=== PATIENT | female | born 1990 | race Caucasian/White ===

== ENCOUNTER 2016-11-25 02:46 | Emergency (ER) | payer OTHER ==
--- NOTE | 2016-11-25 03:10 | PDOC ---
History of Present Illness - General History Source: Patient Exam Limitations: No Limitations - History of Present Illness Initial Comments: 11/25/16 03:17 The patient is a 22-year-old female, with no signifiant past medical history, who presents to the ED with 2 weeks of left-sided facial pain, neck pain, and throat pain. Patient denies any recent trauma or teeth pain. She states the pain is throbbing in nature. The patient denies having any other symptoms. <Celina Morton - Last Filed: 11/25/16 03:16> - General History Source: Patient <Taye Mckoy - Last Filed: 11/25/16 19:28> - General Chief Complaint: Pain Stated Complaint: PAIN Time Seen by Provider: 11/25/16 03:02 Past History <Celina Morton - Last Filed: 11/25/16 03:16> - Past Medical History Asthma: Yes (childhood) Cancer: No Cardiac Disorders: No Diabetes: No HTN: No Seizures: No Thyroid Disease: No - Reproductive History (#): 2 Para: 1 Cervical CA: No Dysfunctional Uterine Bleeding: No Ectopic : No Endometrial CA: No Polycystic Ovaries: No Tubal Ligation: No Spontaneous : 0 - Immunization History Immunization Up to Date: Yes - Psycho/Social/Smoking Cessation Hx Suicidal Ideation: No Smoking History: Never smoked Have you smoked in the past 12 months: No Information on smoking cessation initiated: No Hx Alcohol Use: No Drug/Substance Use Hx: No Hx Substance Use Treatment: No <SungsaumyaTaye - Last Filed: 11/25/16 19:28> - Past Medical History Allergies/Adverse Reactions: Allergies Allergy/AdvReac Type Severity Reaction Status Date / Time No Known Allergies Allergy Verified 11/25/16 02:57 Home Medications: Ambulatory Orders Ibuprofen 800 mg PO TID #30 tablet 11/25/16 Ibuprofen [Motrin -] 600 mg PO TID PRN 11/25/16 Review of Systems - Review of Systems Able to Perform ROS?: Yes Comments:: 11/25/16 03:20 CONSTITUTIONAL: Absent: fever, no chills, no fatigue EYES: Absent: visual changes ENT: Present: throat pain Absent: ear pain CARDIOVASCULAR: Absent: chest pain, no palpitations RESPIRATORY: Absent: cough, no SOB GI: Absent: abdominal pain, no nausea, no vomiting, no constipation, no diarrhea GENITOURINARY: Absent: dysuria, no frequency, no hematuria MUSKULOSKELETAL: Present: neck pain, facial pain Absent: back pain, no arthralgia, SKIN: Absent: rash NEURO: Absent: headache <Celina Morton - Last Filed: 11/25/16 03:16> *Physical Exam - Vital Signs Last Vital Signs Temp Pulse Resp BP Pulse Ox 98.5 F 70 18 119/90 99 11/25/16 02:56 11/25/16 02:56 11/25/16 02:56 11/25/16 02:56 11/25/16 02:56 - Physical Exam Comments: 11/25/16 03:21 GENERAL: Well-appearing, well-nourished. No apparent distress. HEENT: Normocephalic, atraumatic. PERRL, EOM intact. +lymphadenopathy CARDIOVASCULAR: Normal S1, S2. Regular rate and rhythm. PULMONARY: Clear to auscultation bilaterally. ABDOMEN: Soft, non-distended, non-tender. EXTREMITIES: Normal ROM in all four extremities. No gross deformities. SKIN: Warm, dry. No rash NEUROLOGICAL: No focal neurological deficits. <Celina Morton - Last Filed: 11/25/16 03:16> - Vital Signs Last Vital Signs Temp Pulse Resp BP Pulse Ox 98.5 F 70 18 119/90 99 11/25/16 02:56 11/25/16 02:56 11/25/16 02:56 11/25/16 02:56 11/25/16 02:56 <Taye Mckoy - Last Filed: 11/25/16 19:28> Medical Decision Making - Medical Decision Making 11/25/16 19:27 Dr. Mckoy: The scribe's documentation has been prepared under my direction and personally reviewed by me in its entirery. I confirm that the note above accurately reflects all work, treatment, procedures, and medical decision making performed by me. <Taye Mckoy - Last Filed: 11/25/16 19:28> *DC/Admit/Observation/Transfer - Attestations Scribe Attestion: 11/25/16 03:22 Documentation prepared by Celina Morton, acting as medical record librarians teacher for Taye Mckoy MD. <Celina Morton - Last Filed: 11/25/16 03:16> - Discharge Dispostion Admit: No <Taye Mckoy - Last Filed: 11/25/16 19:28> Diagnosis at time of Disposition: Facial pain - Discharge Dispostion Disposition: HOME Condition at time of disposition: Improved - Prescriptions Prescriptions: Ibuprofen 800 mg PO TID #30 tablet - Patient Instructions Printed Discharge Instructions: DI for Acute Pain -- Adult Additional Instructions: please take medication as directed. Follow up with your dentists
[2016-11-25 03:21] VITALS: BP 119/90; PULSE 70; TEMP 98.5; BMI 38.2
[2016-11-25] MEDS ORDERED: IBUPROFEN 400 MG TABLET (FP) PO ONE ×2 (05:25→05:30)
== END 2016-11-25 05:35 | disposition home or self-care (01) ==
LOC: JER 02:46
DX: G50.1 Atypical facial pain (principal)
CPT/HCPCS: 70486-TC; 70490-TC; 84703; 99281-25

== ENCOUNTER 2017-01-22 15:36 | Emergency (ER) | payer OTHER ==
[2017-01-22 15:57] VITALS: BP 121/77; PULSE 62; TEMP 98.5; BMI 42.9
[2017-01-22] MEDS ORDERED: BUPIVACAINE HCL/PF (5 MG/ML) 30 ML VIAL IJ ONE (16:53)
[2017-01-22] MEDS ORDERED: LIDOCAINE HCL 1%, 10 MG/ML (50 mL VIAL) SQ ONE (16:53)
--- NOTE | 2017-01-22 16:59 | PDOC ---
History of Present Illness - General Chief Complaint: Toothache Stated Complaint: TOOTHACHE Time Seen by Provider: 01/22/17 16:08 - History of Present Illness Initial Comments: 01/22/17 16:53 CHIEF COMPLAINT: HISTORY OF PRESENT ILLNESS: 26 yo F with hx of asthma presents to ED with tooth pain. Patient reports that she had all 4 wisdom teeth removed "two or three weeks ago" and since yesterday she started feeling tooth pain to her right side again. Patient states she is not sure if the pain is to her top or bottom teeth. She denies any fever, chills, nausea, vomiting, diarrhea. She states she called the surgeon who did the surgery and she has a f/u appointment on Wednesday. SOCIAL HISTORY:Denies tobacco, alcohol, illicit drug use. SURGICAL HISTORY: Denies ALLERGIES: No known drug allergies REVIEW OF SYSTEMS General/Constitutional: Denies fever or chills. Denies weakness, weight change. HEENT: Right sided tooth pain. Denies change in vision. Denies ear pain or discharge. Denies sore throat. Cardiovascular: Denies chest pain or shortness of breath. Respiratory: Denies cough, wheezing, or hemoptysis. Gastrointestinal: Denies nausea, vomiting, diarrhea or constipation. Denies rectal bleeding. Genitourinary: Denies dysuria, frequency, or change in urination. Musculoskeletal: Denies joint or muscle swelling or pain. Denies neck or back pain. Skin and breasts: Denies rash or easy bruising. PHYSICAL EXAM General Appearance: Well-appearing, appropriately dressed. No apparent distress. HEENT: EOMI, PERRLA, normal ENT inspection, normal voice, TMs normal, pharynx normal. No conjunctival pallor. No photophobia, scleral icterus. Neck: Supple. Trachea midline. No tenderness, rigidity, carotid bruit, stridor , lymphadenopathy, or thyromegaly. Respiratory/Chest: Lungs CTAB. No shortness of breath, chest tenderness, respiratory distress, accessory muscle use. No crackles, rales, rhonchi, stridor , wheezing, dullness Cardiovascular: RRR. S1, S2. No JVD, murmur, bradycardia, tachycardia. Vascular Pulses: Dorsalis-Pedis (R): 2+, Dorsalis-Pedis (L): 2+ Gastrointestinal/Abdominal: Normal bowel sounds. Abdomen soft, non-distended. No tenderness or rebound tenderness. No organomegaly, pulsatile mass, guarding , hernia, hepatomegaly, splenomegaly. Lymphatic: No adenopathy, tenderness. Musculoskeletal/Extremities: Normal inspection. FROM of all extremities, normal capillary refill. Pelvis Stable. No CVA tenderness. No tenderness to extremities, pedal edema, swelling, erythema or deformity. Integumentary: Appropriate color, dry, warm. No cyanosis, erythema, jaundice or rash Neurologic: civil design technician II-XII intact. Fully oriented, alert. Appropriate mood/affect. Motor strength 5/5. No appreciable EOM palsy, facial droop or sensory deficit. Past History - Past Medical History Allergies/Adverse Reactions: Allergies Allergy/AdvReac Type Severity Reaction Status Date / Time No Known Allergies Allergy Verified 01/22/17 15:53 Home Medications: Ambulatory Orders Acetaminophen [Tylenol -] 500 mg PO Q6H PRN #28 tablet 01/22/17 Asthma: Yes (childhood) Cancer: No Cardiac Disorders: No Diabetes: No HTN: No Seizures: No Thyroid Disease: No - Reproductive History (#): 2 Para: 1 Cervical CA: No Dysfunctional Uterine Bleeding: No Ectopic : No Endometrial CA: No Polycystic Ovaries: No Tubal Ligation: No Spontaneous : 0 - Immunization History Immunization Up to Date: Yes - Psycho/Social/Smoking Cessation Hx Suicidal Ideation: No Smoking History: Never smoked Have you smoked in the past 12 months: No Hx Alcohol Use: No Drug/Substance Use Hx: No Hx Substance Use Treatment: No *Physical Exam - Vital Signs Last Vital Signs Temp Pulse Resp BP Pulse Ox 98.5 F 62 19 121/77 97 01/22/17 15:54 01/22/17 15:54 01/22/17 15:54 01/22/17 15:54 01/22/17 15:54 Medical Decision Making - Medical Decision Making 01/22/17 16:58 26 yo F with hx of asthma presents to fast track with R sided tooth pain. -Dental block performed *DC/Admit/Observation/Transfer Diagnosis at time of Disposition: Pain, dental - Discharge Dispostion Disposition: HOME Condition at time of disposition: Stable Admit: No - Prescriptions Prescriptions: Oxycodone HCl/Acetaminophen [Percocet 5-325 mg Tablet] 1 tab PO Q8H PRN #6 tablet MDD 3 PRN Reason: Oral Pain/Mouth Sores Acetaminophen [Tylenol -] 500 mg PO Q6H PRN #28 tablet PRN Reason: Oral Pain/Mouth Sores - Referrals Referrals: Kat Ngo [Primary Care Provider] - - Patient Instructions Printed Discharge Instructions: DI for Dental Pain Additional Instructions: Take medications as prescribed; do not drive, drink alcohol, or operate machinery while taking Percocet. Follow up with your dentist on Wednesday as planned. If you develop any worsening pain, nausea, vomiting, diarrhea, fever, or chills, return to the ER.
[2017-01-22] MEDS ORDERED: LIDOCAINE HCL 1%, 10 MG/ML (20ML VIAL) ONE (17:01)
[2017-01-22] MEDS ORDERED: BUPIVACAINE HCL/PF 0.5% (5MG/ML) 10 ML VIAL ONE (17:02)
== END 2017-01-22 18:07 | disposition home or self-care (01) ==
LOC: JERFT 15:36
PROC: 3E0D3BZ Introduction of Anesthetic Agent into Mouth and Pharynx, Percutaneous Approach (ICD-10-PCS; principal; 2017-01-22)
PROC: 3E0D3BZ Introduction of Anesthetic Agent into Mouth and Pharynx, Percutaneous Approach (ICD-10-PCS; 2017-01-22)
DX: K08.9 Disorder of teeth and supporting structures, unspecified (principal); K08.109 Complete loss of teeth, unspecified cause, unspecified class
CPT/HCPCS: 96372; 99281-25

== ENCOUNTER 2017-08-27 20:12 | Emergency (ER) | payer OTHER ==
[2017-08-27] MEDS ORDERED: ONDANSETRON 4 MG/2 ML VIAL IVPUSH ONE (20:24)
[2017-08-27] MEDS ORDERED: SODIUM CHLORIDE 1,000 ML IV STA (20:24)
--- NOTE | 2017-08-27 20:25 | PDOC ---
Rapid Medical Evaluation Time Seen by Provider: 08/27/17 20:20 Medical Evaluation: Allergies Allergy/AdvReac Type Severity Reaction Status Date / Time No Known Allergies Allergy Verified 08/23/17 17:16 08/27/17 20:22 The patient presents with a chief complaint of: Nausea and vomiting. 7 weeks and 2 days . States that she threw up 9 times today. Currently being treated for a UTI. Denies vaginal bleeding. Transvaginal US on last visit I have performed a brief in-person evaluation of this patient; Pertinent physical exam findings: ambulatory, in no respiratory distress. No TTP of the abdomen I have ordered the following: CBC, CMP, UA, UC The patient will proceed to the ED for further evaluation.
[2017-08-27 20:26] VITALS: BP 131/87; PULSE 81; TEMP 98; BMI 42.3
[2017-08-27 20:52] LABS: BASO % 0.7 % (0-2.0); EOS % 0.2 % (0-4.5); HEMATOCRIT 32.1 % (32.4-45.2); HEMOGLOBIN 10.1 GM/dL (10.7-15.3); LYMPH % 17.9 % (8-40); MCHC 31.5 g/dl (32.0-36.0); MEAN CELL VOLUME 63.7 fl (80-96); MEAN PLT VOLUME 9.6 fl (7.5-11.1); NEUT % 75.2 % (42.8-82.8); PLATELET COUNT 309 K/MM3 (134-434); RBC 5.04 M/mm3 (3.60-5.2)
[2017-08-27 20:59] LABS: ADD RBC MORPHOLOGY YES
[2017-08-27] MEDS ORDERED: ONDANSETRON 4 MG/2 ML VIAL ONE (20:59)
--- NOTE | 2017-08-27 21:31 | PDOC ---
History of Present Illness - General Chief Complaint: Nausea/Vomiting Stated Complaint: Nausea/Vomiting 2 MONTHS Time Seen by Provider: 08/27/17 20:20 History Source: Patient Exam Limitations: No Limitations - History of Present Illness Travel History: No Initial Comments: 08/27/17 21:21 Best Contact: Pmhx: Asthma/never admitted or intubated Pshx:n/a Allergies:NKDA LMP: 07/04/2017 Last transvaginal ultrasound: 27-year-old female presents to the emergency department complaining of hyperemesis for approximately 6 hours without abdominal discomfort, fever, chills, headache, dizziness, lightheadedness, chest pain, shortness of breath, flank pains, urinary symptoms: Frequency/urgency/hesitancy, hematuria. Patient denies vaginal bleed/discharge. Timing/Duration: reports: intermittent Past History - Past Medical History Allergies/Adverse Reactions: Allergies Allergy/AdvReac Type Severity Reaction Status Date / Time No Known Allergies Allergy Verified 08/27/17 20:25 Home Medications: Ambulatory Orders NK [No Known Home Medication] 08/27/17 Asthma: Yes (childhood) Cancer: No Cardiac Disorders: No COPD: No Diabetes: No HTN: No Seizures: No Thyroid Disease: No - Reproductive History (#): 2 Para: 1 Cervical CA: No Dysfunctional Uterine Bleeding: No Ectopic : No Endometrial CA: No Polycystic Ovaries: No Tubal Ligation: No Spontaneous : 0 - Immunization History Immunization Up to Date: Yes - Suicide/Smoking/Psychosocial Hx Smoking History: Never smoked Have you smoked in the past 12 months: No Information on smoking cessation initiated: No Hx Alcohol Use: No Drug/Substance Use Hx: No Substance Use Type: None Hx Substance Use Treatment: No Review of Systems - Review of Systems Able to Perform ROS?: Yes Comments:: 08/27/17 21:31 CONSTITUTIONAL: Absent: fever, chills, diaphoresis, generalized weakness, malaise, loss of appetite HEENT: Absent: rhinorrhea, nasal congestion, throat pain, throat swelling, difficulty swallowing, mouth swelling, ear pain, eye pain, visual Changes CARDIOVASCULAR: Absent: chest pain, loss of consciousness, palpitations, irregular heart rate, peripheral edema RESPIRATORY: Absent: cough, shortness of breath, dyspnea with exertion, orthopnea, wheezing, stridor, hemoptysis GASTROINTESTINAL: +N/V Absent: abdominal pain, abdominal distension,diarrhea, constipation, melena, hematochezia GENITOURINARY: Absent: dysuria, frequency, urgency, hesitancy, hematuria, flank pain, genital pain MUSCULOSKELETAL: Absent: myalgia, arthralgia, joint swelling SKIN: Absent: rash, itching, pallor Is the patient limited Tunisian proficient: No *Physical Exam - Vital Signs Last Vital Signs Temp Pulse Resp BP Pulse Ox 98.0 F 81 18 131/87 98 08/27/17 20:19 08/27/17 20:19 08/27/17 20:19 08/27/17 20:19 08/27/17 20:19 - Physical Exam Comments: 08/27/17 21:32 GENERAL: Well developed, well nourished. Awake and alert. No acute distress. HEENT: Normocephalic, atraumatic. PERRLA, EOMI. No conjunctival pallor. Sclera are non- icteric. Moist mucous membranes. Oropharynx is clear. NECK: Supple. Full ROM. No JVD. Carotid pulses 2+ and symmetric, without bruits. No thyromegaly. No lymphadenopathy. CARDIOVASCULAR: Regular rate and rhythm. No murmurs, rubs, or gallops. Distal pulses are 2+ and symmetric. PULMONARY: No evidence of respiratory distress. Lungs clear to auscultation bilaterally. No wheezing, rales or rhonchi. ABDOMINAL: Soft. Non-tender. Non-distended. No rebound or guarding. No organomegaly. Normoactive bowel sounds. MUSCULOSKELETAL Normal range of motion at all joints. No bony deformities or tenderness. No CVA tenderness. EXTREMITIES: No cyanosis. No clubbing. No edema. No calf tenderness. SKIN: Warm and dry. Normal capillary refill. No rashes. No jaundice. ED Treatment Course - LABORATORY CBC & Chemistry Diagram: 08/27/17 20:45 08/27/17 20:45 - ADDITIONAL ORDERS Additional order review: 08/27/17 20:45 RBC 5.04 MCV 63.7 L MCHC 31.5 L RDW 17.0 H MPV 9.6 Neutrophils % 75.2 Lymphocytes % 17.9 Monocytes % 6.0 Eosinophils % 0.2 Basophils % 0.7 Progress Note - Progress Note Progress Note: 2201hrs: By mouth challenge after 2 L of IV fluids/ patient states she feels fine. Monitor for 30 minutes/no nausea or vomiting. *DC/Admit/Observation/Transfer Diagnosis at time of Disposition: Hyperemesis gravidarum - Discharge Dispostion Condition at time of disposition: Stable Admit: No - Referrals Referrals: Kat Ngo [Primary Care Provider] - - Patient Instructions Printed Discharge Instructions: DI for Hyperemesis Gravidarum Additional Instructions: Increase fluids Pelvic rest Don't forget to follow-up with the lighting designer as scheduled for August 30 Return back to the emergency department for severe/persistent or worsening symptoms - Post Discharge Activity
[2017-08-27 21:37] LABS: ALBUMIN 3.7 g/dl (3.4-5.0); ANION GAP 7 (8-16); BILIRUBIN,TOTAL 0.6 mg/dL (0.2-1.0); BLOOD UREA NITROGEN 8 mg/dL (7-18); CALCIUM 8.8 mg/dL (8.5-10.1); CHLORIDE 102 mmol/L (98-107); CO2 27 mmol/L (21-32); CREATININE 0.6 mg/dL (0.55-1.02); GLUCOSE,RANDOM 81 mg/dL (74-106); POTASSIUM 3.8 mmol/L (3.5-5.1); SGOT/AST 22 U/L (15-37); SGPT/ALT 44 U/L (12-78); SODIUM 136 mmol/L (136-145); TOT PROT 8.1 g/dl (6.4-8.2)
[2017-08-27 21:38] LABS: ALK PHOS 127 U/L (45-117)
[2017-08-27 23:38] LABS: URINE APPEARANCE CLOUDY; URINE BILIRUBIN NEGATIVE (<2.0 mg/dL); URINE BLOOD NEGATIVE (NEGATIVE); URINE COLOR AMBER; URINE GLUCOSE (UA) NEGATIVE (NEGATIVE); URINE KETONE 2+ (NEGATIVE); URINE LEUK ESTERASE 3+ (NEGATIVE); URINE NITRITE NEGATIVE (NEGATIVE); URINE PROTEIN 1+ (NEGATIVE); URINE UROBILINOGEN 4.0 E.U/dl mg/dL (0.2-1.0)
[2017-08-27 23:41] LABS: EPI CELLS MANY /HPF (FEW); URINE MUCUS MANY
[2017-08-28 01:55] LABS: ANISOCYTOSIS 1+
== END 2017-08-27 23:30 | disposition home or self-care (01) ==
LOC: JER 20:12
PROC: 3E0337Z Introduction of Electrolytic and Water Balance Substance into Peripheral Vein, Percutaneous Approach (ICD-10-PCS; principal; 2017-08-27)
PROC: 3E033GC Introduction of Other Therapeutic Substance into Peripheral Vein, Percutaneous Approach (ICD-10-PCS; 2017-08-27)
DX: O26.891 Other specified pregnancy related conditions, first trimester (principal); O21.0 Mild hyperemesis gravidarum; Z3A.01 Less than 8 weeks gestation of pregnancy
CPT/HCPCS: 36415; 80053; 81003; 81015; 85025; 87086; 96361; 96375; 99281-25; J7030

== ENCOUNTER 2017-11-10 20:52 | Emergency (ER) | payer OTHER ==
[2017-11-10 21:01] VITALS: BP 110/65; PULSE 89; TEMP 98.9; BMI 39.6
--- NOTE | 2017-11-10 21:02 | PDOC ---
Rapid Medical Evaluation Time Seen by Provider: 11/10/17 20:57 Medical Evaluation: Allergies Allergy/AdvReac Type Severity Reaction Status Date / Time No Known Allergies Allergy Verified 08/27/17 20:25 11/10/17 20:57 I have performed a brief in-person evaluation of this patient. The patient presents with a chief complaint of: 16 wks preg with abd cramping and vaginal bleeding after intercourse- Pertinent physical exam findings: abd SNTND. Car Construction Superintendent deferred I have ordered the following: CBC, bmp, T&S, UA The patient will proceed to the ED for further evaluation. Discharge Disposition - Diagnosis Abdominal cramping affecting - Referrals - Patient Instructions - Post Discharge Activity
--- NOTE | 2017-11-10 21:02 | PDOC ---
History of Present Illness - General History Source: Patient Exam Limitations: No Limitations - History of Present Illness Initial Comments: 11/10/17 21:43 The patient is a 27 year old approximately 16 weeks female (), with no significant past medical history, who presents to the emergency department with vaginal bleeding s/p sexual intercourse tonight. Patient reports noting vaginal bleeding when wiping s/p intercourse. Patient notes associated pelvic discomfort, but denies any dysuria, hematuria, frequency, urgency, vaginal discharge or blood clots. She denies any nausea, vomiting, diarrhea, or constipation. She denies any fever or chills. Patient reports her prior pregnancies were normal spontaneous vaginal deliveries, with no complications. She denies any recent trauma or heavy lifting. Allergies: NKDA Past Surgical History: None reported Social History: Non smoker. No ETOH or recreational drug use. Family History: Diabetes(father) OBGYN: Kavin Herbert <Amrit Dowd - Last Filed: 11/10/17 23:30> <Radha Culp - Last Filed: 11/10/17 23:41> - General Chief Complaint: Vaginal Bleeding Stated Complaint: VAGINAL BLEEDING/16 WKS Time Seen by Provider: 11/10/17 20:57 Past History <Amrit Dowd - Last Filed: 11/10/17 23:30> - Past Medical History Asthma: Yes (childhood) Cancer: No Cardiac Disorders: No COPD: No Diabetes: No HTN: No Seizures: No Thyroid Disease: No - Reproductive History (#): 2 Para: 1 Cervical CA: No Dysfunctional Uterine Bleeding: No Ectopic : No Endometrial CA: No Polycystic Ovaries: No Tubal Ligation: No Spontaneous : 0 - Immunization History Immunization Up to Date: Yes - Suicide/Smoking/Psychosocial Hx Smoking History: Never smoked Have you smoked in the past 12 months: No Hx Alcohol Use: No Drug/Substance Use Hx: No Substance Use Type: None Hx Substance Use Treatment: No <Radha Culp - Last Filed: 11/10/17 23:41> - Past Medical History Allergies/Adverse Reactions: Allergies Allergy/AdvReac Type Severity Reaction Status Date / Time No Known Allergies Allergy Verified 11/10/17 20:59 Home Medications: Ambulatory Orders Ondansetron [Zofran Odt -] 4 mg SL TID #12 od.tablet 08/27/17 Cephalexin Monohydrate [Keflex -] 500 mg PO BID #14 capsule 11/10/17 Review of Systems - Review of Systems Able to Perform ROS?: Yes Comments:: 11/10/17 21:44 GENERAL/CONSTITUTIONAL: No fever or chills. No weakness. HEAD, EYES, EARS, NOSE AND THROAT: No change in vision. No ear pain or discharge. No sore throat. GASTROINTESTINAL: No nausea, vomiting, diarrhea or constipation. GENITOURINARY: +Vaginal bleeding, pelvic discomfort. No dysuria, frequency, hematuria, urgency, or vaginal discharge/clots. CARDIOVASCULAR: No chest pain or shortness of breath. RESPIRATORY: No cough, wheezing, or hemoptysis. MUSCULOSKELETAL: No joint or muscle swelling or pain. No neck or back pain. SKIN: No rash NEUROLOGIC: No headache, vertigo, loss of consciousness, or change in strength/ sensation. ENDOCRINE: No increased thirst. No abnormal weight change. HEMATOLOGIC/LYMPHATIC: No anemia, easy bleeding, or history of blood clots. ALLERGIC/IMMUNOLOGIC: No hives or skin allergy. <NileGiomilsy - Last Filed: 11/10/17 23:30> *Physical Exam - Vital Signs Last Vital Signs Temp Pulse Resp BP Pulse Ox 98.9 F 89 18 110/65 98 11/10/17 20:59 11/10/17 20:59 11/10/17 20:59 11/10/17 20:59 11/10/17 20:59 - Physical Exam Comments: 11/10/17 21:44 Constitutional: Awake, alert, oriented. No acute distress. Head: Normocephalic. Atraumatic Eyes: PERRL. EOMI. Conjunctivae are not pale. Cardiovascular: Regular rate. Regular rhythm. S1, S2 regular. Distal pulses are 2+ and symmetric. Pulmonary/Chest: No evidence of respiratory distress. Clear to auscultation bilaterally No wheezing, rales or rhonchi. Abdominal: Soft and non-distended. There is no tenderness. No rebound, guarding or rigidity. No organomegaly. No palpable masses. Good bowel sounds. Pelvic: Mild right adnexal tenderness and pink discharge, but no active bleeding or clots. Cervical os is closed. No cervical motion tenderness. Back: No CVA tenderness. Musculoskeletal: No edema. No cyanosis. No clubbing. Full range of motion in all extremities. No calf tenderness. Radial/pedal pulses are intact and 2+ bilaterally Skin: Skin is warm and dry. No petechiae. No purpura. Neurological: Alert and oriented to person, place, and time. Cranial nerves II -XII are grossly intact. Normal speech. Strength is grossly symmetric. No sensory deficits. <Amrit Dowd - Last Filed: 11/10/17 23:30> - Vital Signs Last Vital Signs Temp Pulse Resp BP Pulse Ox 98.9 F 89 18 110/65 98 11/10/17 20:59 11/10/17 20:59 11/10/17 20:59 11/10/17 20:59 11/10/17 20:59 <Radha Culp - Last Filed: 11/10/17 23:41> ED Treatment Course - LABORATORY CBC & Chemistry Diagram: 11/10/17 21:36 11/10/17 22:00 - RADIOLOGY Radiograph Interpretation: 11/10/17 23:30 EXAM: Transvaginal US INTERPRETED BY: Dr. May REVIEWED BY: Dr. Culp IMPRESSION: Single live intrauterine with estimated gestational age of 18 weeks. heart activity was documented. Normal amount of amniotic fluid. Placenta previa, as described above. Normal sagittal length of the uterine cervix without dilatation. <Amrit Dowd - Last Filed: 11/10/17 23:30> - LABORATORY CBC & Chemistry Diagram: 11/10/17 21:36 11/10/17 22:00 <Radha Culp - Last Filed: 11/10/17 23:41> Medical Decision Making - Medical Decision Making 11/10/17 23:32 First call placed to Dr. Natarajan at 23:30. Awaiting call back. First call placed to L&D at 23:32. Case discussed with Dr. Rogers, who agrees with outpatient OB follow-up and pelvic rest/no heavy lifting. Recommends return to the ER with worsening bleeding. Also recommends repeat anatomy scan. <Amrit Dowd - Last Filed: 11/10/17 23:30> - Medical Decision Making 11/10/17 21:37 a/p: 27yo at 16 weeks with vaginal bleeding after intercourse tonight -no active bleeding at this time -will check labs and preg u/s -will monitor and reassess -discussed plan with the patient -will send ua and beta -type and screen 11/10/17 21:43 O+ in the past 11/10/17 21:57 pt with UTI on labs, will start keflex 11/10/17 23:29 IUP at 18weeks placental previa on ultrasound call placed to Dr. Natarajan 11/10/17 23:[address] the [address] Rogers who recommends repeat ultrasound with anatomy scan, follow up with Kavin herbert, pelvic rest discussed with the patient the ultrasound in detail and pelvic rest discussed UTI will send Rx to medicine cabinet discussed all reasons to return to the ED and need for follow up with kavin herbert answered all questions stable for d/c to home <Radha Culp - Last Filed: 11/10/17 23:41> *DC/Admit/Observation/Transfer - Attestations Scribe Attestion: 11/10/17 21:45 Documentation prepared by Amrit Dowd, acting as medical planner for Radha Culp DO. <Amrit Dowd - Last Filed: 11/10/17 23:30> - Discharge Dispostion Decision to Admit order: No - Attestations Physician Attestion: 11/10/17 23:41 I, Dr. Radha Culp DO, attest that this document has been prepared under my direction and personally reviewed by me in its entirety. I further attest, that it accurately reflects all work, treatment, procedures and medical decision -making performed by me. <Radha Culp - Last Filed: 11/10/17 23:41> Diagnosis at time of Disposition: Abdominal cramping affecting , Placenta previa, UTI (urinary tract infection) during - Discharge Dispostion Disposition: HOME Condition at time of disposition: Stable - Prescriptions Prescriptions: Cephalexin Monohydrate [Keflex -] 500 mg PO BID #14 capsule - Referrals Referrals: Kelin Herbert MD [Certified Nurse Animal Care Worker] - - Patient Instructions Printed Discharge Instructions: DI for Placenta Previa, DI for Urinary Tract Infection (UTI) Additional Instructions: Please drink plenty of fluids. Please practice pelvic rest. Please take all antibiotics as prescribed. Please return to the ED with any further concerns or complaints. - Post Discharge Activity Forms/Work/School Notes: Back to Work
[2017-11-10 21:41] LABS: BASO % 0.3 % (0-2.0); EOS % 0.9 % (0-4.5); HEMATOCRIT 30.2 % (32.4-45.2); HEMOGLOBIN 9.6 GM/dL (10.7-15.3); LYMPH % 23.5 % (8-40); MCH 20.8 pg (25.7-33.7); MCHC 31.9 g/dl (32.0-36.0); MEAN CELL VOLUME 65.4 fl (80-96); MEAN PLT VOLUME 9.8 fl (7.5-11.1); MONO % 7.4 % (3.8-10.2); NEUT % 67.9 % (42.8-82.8); PLATELET COUNT 258 K/MM3 (134-434); RBC 4.63 M/mm3 (3.60-5.2); RDW 17.9 % (11.6-15.6); WHITE BLOOD COUNT 9.9 K/mm3 (4.0-10.0)
[2017-11-10 21:44] LABS: ADD RBC MORPHOLOGY YES
[2017-11-10 21:47] LABS: URINE APPEARANCE SLCLOUDY; URINE BILIRUBIN NEGATIVE (<2.0 mg/dL); URINE BLOOD 3+ (NEGATIVE); URINE COLOR YELLOW; URINE GLUCOSE (UA) NEGATIVE (NEGATIVE); URINE KETONE NEGATIVE (NEGATIVE); URINE LEUK ESTERASE 2+ (NEGATIVE); URINE NITRITE NEGATIVE (NEGATIVE); URINE PROTEIN 1+ (NEGATIVE); URINE UROBILINOGEN 4.0 E.U/dl mg/dL (0.2-1.0)
[2017-11-10 21:48] LABS: EPI CELLS RARE /HPF (FEW); URINE BACTERIA MANY /hpf (NONE SEEN); URINE MUCUS FEW
[2017-11-10] MEDS ORDERED: CEPHALEXIN MONOHYDRATE 500 MG CAPSULE (UD) PO ONE (21:57)
[2017-11-10] MEDS ORDERED: CEPHALEXIN MONOHYDRATE 500 MG CAPSULE (UD) ONE (21:59)
[2017-11-10 22:14] LABS: ANION GAP 9 (8-16); BLOOD UREA NITROGEN 7 mg/dL (7-18); CALCIUM 8.6 mg/dL (8.5-10.1); CHLORIDE 105 mmol/L (98-107); CO2 24 mmol/L (21-32); CREATININE 0.5 mg/dL (0.55-1.02); GLUCOSE,RANDOM 81 mg/dL (74-106); POTASSIUM 3.7 mmol/L (3.5-5.1); SODIUM 138 mmol/L (136-145)
[2017-11-10 22:58] LABS: ANION GAP 10 (8-16); BILIRUBIN,TOTAL 0.3 mg/dL (0.2-1.0); BLOOD UREA NITROGEN 8 mg/dL (7-18); CALCIUM 8.7 mg/dL (8.5-10.1); CHLORIDE 105 mmol/L (98-107); CO2 23 mmol/L (21-32); CREATININE 0.5 mg/dL (0.55-1.02); GLUCOSE,RANDOM 80 mg/dL (74-106); POTASSIUM 3.7 mmol/L (3.5-5.1); SGOT/AST 12 U/L (15-37); SGPT/ALT 17 U/L (12-78); SODIUM 138 mmol/L (136-145); TOT PROT 6.9 g/dl (6.4-8.2)
[2017-11-10 23:14] LABS: ALK PHOS 109 U/L (45-117)
[2017-11-10 23:33] LABS: ANISOCYTOSIS 1+; MACROCYTOSIS 1+
[2017-11-10 23:35] LABS: PLATELET ESTIMATE ADEQUATE
== END 2017-11-10 23:58 | disposition home or self-care (01) ==
LOC: JER 20:52
DX: O26.892 Other specified pregnancy related conditions, second trimester (principal); O44.02 Complete placenta previa NOS or without hemorrhage, second trimester; O23.42 Unspecified infection of urinary tract in pregnancy, second trimester; Z3A.16 16 weeks gestation of pregnancy; R10.2 Pelvic and perineal pain
CPT/HCPCS: 36415; 76801-TC; 76817-TC; 80048; 80053; 81003; 81015; 84702; 85025; 86850; 86900; 86901; 99285-25

== ENCOUNTER 2018-03-12 17:49 | Emergency (ER) | payer OTHER ==
[2018-03-12 17:57] VITALS: TEMP 98.6; BMI 42.7
--- NOTE | 2018-03-12 18:09 | PDOC ---
Rapid Medical Evaluation Chief Complaint: Labor Assessment Time Seen by Provider: 03/12/18 18:06 Medical Evaluation: Allergies Allergy/AdvReac Type Severity Reaction Status Date / Time No Known Allergies Allergy Verified 03/12/18 17:53 Vital Signs Temp Pulse Resp BP Pulse Ox 98.6 F 94 H 18 107/58 L 100 03/12/18 17:54 03/12/18 17:54 03/12/18 17:54 03/12/18 17:54 03/12/18 17:54 03/12/18 18:07 Pt briefly seen and evaluated by me in triage. She is a 33 week female w/ a h/o placenta previa coming in c/o abdominal pain, back pain for the past couple of days. She has care. All her vitals are stable, she is medically stable for transfer to labor and delivery for a full evaluation Discharge Disposition - Diagnosis Abdominal pain affecting - Discharge Dispostion Disposition: HOME Condition at time of disposition: Stable Last Admission D/C Date: 12/22/15 - Referrals Referrals: Kelin Herbert MD [Primary Care Provider] - - Patient Instructions Additional Instructions: Discharge to home. Keep your appointment at the clinic this week. Increase PO fluids. Return to the hospital if you have regular contractions every 5 minutes for 2 to 3 hours, rupture of membranes, vaginal bleeding, or a decrease in movement. - Post Discharge Activity
[2018-03-12 18:45] VITALS: BP 109/66; PULSE 89
== END 2018-03-12 18:58 | disposition home or self-care (01) ==
LOC: JER 17:49
DX: O26.893 Other specified pregnancy related conditions, third trimester (principal); R10.30 Lower abdominal pain, unspecified; M54.5 Low back pain; Z3A.33 33 weeks gestation of pregnancy
CPT/HCPCS: 99281-25

== ENCOUNTER 2018-04-08 21:15 | Inpatient (IN) | payer OTHER ==
[2018-04-08 22:15] LABS: BASO % 0.5 % (0-2.0); EOS % 0.4 % (0-4.5); HEMOGLOBIN 9.2 GM/dL (10.7-15.3); LYMPH % 21.5 % (8-40); MCH 20.3 pg (25.7-33.7); MCHC 31.7 g/dl (32.0-36.0); MEAN CELL VOLUME 64.1 fl (80-96); MEAN PLT VOLUME 9.7 fl (7.5-11.1); MONO % 5.5 % (3.8-10.2); NEUT % 72.1 % (42.8-82.8); PLATELET COUNT 237 K/MM3 (134-434); RBC 4.52 M/mm3 (3.60-5.2); RDW 18.3 % (11.6-15.6); WHITE BLOOD COUNT 10.2 K/mm3 (4.0-10.0)
[2018-04-08] MEDS ORDERED: BUTORPHANOL TARTRATE 1 MG/ML VIAL IVPUSH ONE (22:30)
[2018-04-08] MEDS ORDERED: PROMETHAZINE HCL 25 MG/1 ML VIAL IVPUSH ONE (22:30)
[2018-04-08] MEDS ORDERED: DEXTROSE 5%-LACTATED RINGERS 1,000 ML IV SCH (22:30)
[2018-04-08 22:32] LABS: INR 0.93 (0.83-1.09)
[2018-04-08 22:35] LABS: ACTIVATED PTT 27.7 SECONDS (25.2-36.5)
--- NOTE | 2018-04-08 22:37 | HP ---
Past Medical History - Primary Care Physician PCP:: Uriel Barnes ( ) - Admission Chief Complaint: 39 weeks ,labor History of Present Illness: 28 yo f g 3 p2002 edc 04/09/18 39 weeks in labor ,no rom, cx 6 cm 80 vx -1 mi, fhr cat 1, regular contraction History Source: Patient Limitations to Obtaining History: No Limitations - Past Medical History Pulmonary: Yes: Asthma ...: 3 ...Para: 2 ...Term: 2 ...: 0 ...EDC by Dates: 04/09/18 Heme/Onc: Yes: Anemia - Past Surgical History Hx Myomectomy: No Hx Transabdominal Cerclage: No - Smoking History Smoking history: Never smoked Have you smoked in the past 12 months: No - Alcohol/Substance Use Hx Alcohol Use: No - Social History Usual Living Arrangement: Yes: With Spouse History of Recent Travel: No Home Medications - Allergies Allergies/Adverse Reactions: Allergies Allergy/AdvReac Type Severity Reaction Status Date / Time No Known Allergies Allergy Verified 03/12/18 18:47 - Home Medications Home Medications: Ambulatory Orders Vit Calc,Iron,Folic [ Vitamins] 1 tab PO DAILY 11/27/17 Ferrous Sulfate [Feosol] 325 mg PO TID 02/25/18 Review of Systems - Review of Systems Constitutional: reports: No Symptoms Eyes: reports: No Symptoms HENT: reports: No Symptoms Neck: reports: No Symptoms Cardiovascular: reports: No Symptoms Respiratory: reports: No Symptoms Gastrointestinal: reports: No Symptoms Genitourinary: reports: No Symptoms Breasts: reports: No Symptoms Reported Musculoskeletal: reports: No Symptoms Integumentary: reports: No Symptoms Neurological: reports: No Symptoms Endocrine: reports: No Symptoms Hematology/Lymphatic: reports: No Symptoms Psychiatric: reports: No Symptoms Physical Exam - Maternity Constitutional: Yes: Well Nourished, No Distress, Calm Eyes: Yes: WNL, Conjunctiva Clear, EOM Intact HENT: Yes: WNL, Atraumatic, Normocephalic Neck: Yes: WNL, Supple, Trachea Midline Cardiovascular: Yes: WNL, Regular Rate and Rhythm Breast(s): Yes: WNL - Abdominal Exam/OB Fundal Height: 40 Number of Fetuses: Single Presentation: Vertex Contractions: Yes Regularity: Regular Intensity: Mod/Strong Monitor Mode: External Heart Rate Location: [facility] Category: I Accelerations: Uniform Decelerations: None - Vaginal Exam/OB Vaginal Bleediing: No Dilatation (cm): 6 cm Effacement (%): 80 Amniotic Membrane Status: Bulging Presentation: Vertex/Position Station: -2 - Physical Exam Musculoskeletal: Yes: WNL Extremities: Yes: WNL Edema: Yes Edema: LLE: Trace, RLE: Trace Deep Tendon Reflex Grade: Normal +2 Psychiatric: Yes: WNL - Labs Lab Results: CBC, BMP 04/08/18 22:00 Hemorrhage Risk Assessment - Risk Factors Medium Risk Factors: Yes: None High Risk Factors: Yes: None Risk Score: 1 Risk Level: Medium Risk Problem List - Problems (1) 40 weeks gestation of Code(s): Z3A.40 - 40 WEEKS GESTATION OF (2) 39 weeks gestation of Code(s): Z3A.39 - 39 WEEKS GESTATION OF (3) Labor established Code(s): [id number] - Assessment/Plan admit for vaginal delivery fhm pain management
--- NOTE | 2018-04-08 22:40 | PN ---
Progress Note (short form) - Note Progress Note: 930 pm cx 6 cm, 80 vx -2 arom, clear, scalp electrode applied Problem List - Problems (1) 40 weeks gestation of Code(s): Z3A.40 - 40 WEEKS GESTATION OF (2) 39 weeks gestation of Code(s): Z3A.39 - 39 WEEKS GESTATION OF (3) Labor established Code(s): HNJ7989 -
[2018-04-08 22:44] LABS: ANION GAP 10 MMOL/L (8-16); BLOOD UREA NITROGEN 14 mg/dL (7-18); CALCIUM 8.5 mg/dL (8.5-10.1); CHLORIDE 105 mmol/L (98-107); CO2 22 mmol/L (22-28); CREATININE 0.5 mg/dL (0.55-1.3); GLUCOSE,RANDOM 75 mg/dL (74-106); POTASSIUM 4.1 mmol/L (3.5-5.1); SODIUM 136 mmol/L (136-145)
[2018-04-08 22:51] LABS: ANISOCYTOSIS 1+
[2018-04-08 22:53] VITALS: BMI 41.5
[2018-04-08] MEDS ORDERED: OXYTOCIN 20 UNITS in 0.9% NS 20 UNIT/1,000 ML INFUS.BAG IV ONE (23:35)
[2018-04-08] MEDS ORDERED: BUTORPHANOL TARTRATE 1 MG/ML VIAL ONE ×2 (23:38)
[2018-04-08] MEDS ORDERED: PROMETHAZINE HCL 25 MG/1 ML VIAL ONE (23:39)
[2018-04-09] MEDS ORDERED: BENZOCAINE 20% 57 GM BOTTLE TP PRN (00:07)
[2018-04-09] MEDS ORDERED: WITCH HAZEL 50% (TUCKS) 40 PAD/JAR PAD TP PRN (00:07)
[2018-04-09] MEDS ORDERED: BISACODYL 10 MG SUPP.RECT RC PRN (00:07)
[2018-04-09] MEDS ORDERED: ACETAMINOPHEN 325 MG TABLET (FP) PO PRN (00:07)
[2018-04-09] MEDS ORDERED: BENZOCAINE 28 GM HEMORRHOIDAL OINTMENT TP PRN (00:07)
[2018-04-09] MEDS ORDERED: IBUPROFEN 600 MG TABLET (FP) PO PRN (00:07)
[2018-04-09] MEDS ORDERED: METHYLERGONOVINE MALEATE 0.2 MG/1 ML AMP IM PRN (00:07)
[2018-04-09] MEDS ORDERED: OXYTOCIN 20 UNITS in 0.9% NS 20 UNIT/1,000 ML INFUS.BAG IV SCH (00:15)
[2018-04-09] MEDS ORDERED: D5W-LR W/ 20 UNITS OXYTOCIN 1,000 ML IV SCH (00:15)
[2018-04-09] MEDS ORDERED: OXYTOCIN 20 UNITS in 0.9% NS 20 UNIT/1,000 ML INFUS.BAG IV ONE (02:57)
[2018-04-09] MEDS: FERROUS SO4 325 MG TABLET (FP) PO SCH ×2 (09:22→18:04)
[2018-04-09] MEDS: PRENATAL VITAMINS W/ FOLIC ACID TABLET (FP) PO SCH (09:25)
[2018-04-09] MEDS ORDERED: PNEUMOC 13-VAL CONJ-DIP CRM/PF 0.5 ML DISP.SYRIN IM ONE (10:00)
[2018-04-09] MEDS ORDERED: DIPHTH,PERTUSS(ACELL),TET 0.5 ML DISP.SYRIN IM ONE (10:00)
[2018-04-09] MEDS ORDERED: PNEUMOCOCCAL 23 VACCINE 0.5 ML VIAL IM ONE (10:00)
[2018-04-10] MEDS: FERROUS SO4 325 MG TABLET (FP) PO SCH (08:00)
[2018-04-10 08:14] LABS: BASO % 0.4 % (0-2.0); HEMATOCRIT 28.4 % (32.4-45.2); HEMOGLOBIN 8.5 GM/dL (10.7-15.3); LYMPH % 25.8 % (8-40); MEAN PLT VOLUME 9.1 fl (7.5-11.1); MONO % 6.4 % (3.8-10.2); NEUT % 66.4 % (42.8-82.8); PLATELET COUNT 184 K/MM3 (134-434); RBC 4.37 M/mm3 (3.60-5.2); RDW 17.6 % (11.6-15.6); WHITE BLOOD COUNT 10.2 K/mm3 (4.0-10.0)
[2018-04-10 08:43] LABS: MCH 19.5 pg (25.7-33.7)
[2018-04-10] MEDS: PRENATAL VITAMINS W/ FOLIC ACID TABLET (FP) PO SCH (09:58)
[2018-04-10 11:07] VITALS: BP 120/73; PULSE 81; TEMP 98.4
--- NOTE | 2018-04-10 19:18 | DS ---
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 Vital Signs: Vital Signs Temperature 98.4 F 04/10/18 10:00 Pulse Rate 81 04/10/18 10:00 Respiratory Rate 18 04/10/18 10:00 Blood Pressure 120/73 04/10/18 10:00 O2 Sat by Pulse Oximetry (%) 99 04/09/18 01:10 Constitutional: Yes: Well Nourished, No Distress, Calm Eyes: Yes: WNL, Conjunctiva Clear, EOM Intact HENT: Yes: WNL, Atraumatic, Normocephalic Neck: Yes: WNL, Supple, Trachea Midline Cardiovascular: Yes: WNL, Regular Rate and Rhythm Respiratory: Yes: WNL, Regular, CTA Bilaterally Gastrointestinal: Yes: WNL ...Rectal Exam: Yes: WNL Renal/: Yes: WNL ....Post : Yes: Uterus firm, Uterus non-tender, Slight lochia rubra Breast(s): Yes: WNL Musculoskeletal: Yes: WNL Extremities: Yes: WNL Edema: No Integumentary: Yes: WNL Neurological: Yes: WNL, Alert, Oriented ...Motor Strength: WNL Psychiatric: Yes: WNL, Alert, Oriented Labs: CBC, BMP 04/10/18 07:38 04/08/18 22:00 Delivery - Delivery Vaginal Delivery: Spontaneous (no complication) Type of Anesthesia: None Episiotomy/Laceration: None EBL (cc): 300 Delivery, Single - Stages of Labor Date 1st Stage Initiatied: 04/08/18 Time 1st Stage Initiated: 20:00 Date 2nd Stage Initiated: 04/08/18 Time 2nd Stage Initiated: 23:40 Date of Delivery: 04/08/18 Time of Delivery: 23:58 Time Placenta Delivered: 00:05 Placenta: Yes: Spontaneous - 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 Present: No Gender: Female Weight: 7 lb 8 oz Position: Left, OA Total Hours ROM (Hrs/Mins): 2Hrs/ 33Mins - 1 Minute Total Score: 9 5 Minutes Total Score: 9 - Feeding Plan Initial Plan: Exclusive throughout hospitalization Discharge Summary Reason For Visit: LABOR ADMIT Procedures: Principal: Hospital Course: no complication Condition: Good - Instructions Referrals: Uriel Barnes MD [Staff Physician] - Disposition: HOME - Home Medications Comprehensive Discharge Medication List: Ambulatory Orders Vit Calc,Iron,Folic [ Vitamins] 1 tab PO DAILY 11/27/17 Ferrous Sulfate [Feosol] 325 mg PO TID 02/25/18
[2018-04-10] MEDS ORDERED: SENNOSIDES/DOCUSATE COMBO (SENNA PLUS) TABLET (UD) PO PRN (22:00)
== END 2018-04-10 15:00 | disposition home or self-care (01) | DRG 560 ==
LOC: JLDR 21:15 → J3W 04-09 03:01
PROVIDERS: ADMIT Obstetrics & Gynecology; ATTEND Obstetrics & Gynecology
PROC: 10E0XZZ Delivery of Products of Conception, External Approach (ICD-10-PCS; principal; 2018-04-08)
DX: O80 Encounter for full-term uncomplicated delivery (principal); Z3A.39 39 weeks gestation of pregnancy; Z37.0 Single live birth
CPT/HCPCS: 36415; 59409; 80048; 85025; 85610; 85730; 86593; 86850; 86900; 86901; 90715; 90732; G0009

== ENCOUNTER 2021-07-09 18:26 | Observation (INO) | payer OTHER ==
[2021-07-09] MEDS ORDERED: FAMOTIDINE 20 MG/50 ML IVPB 20 MG/50 ML MG IVPB ONE ×2 (19:32→19:56)
[2021-07-09] MEDS ORDERED: ONDANSETRON 4 MG/2 ML VIAL IVPUSH ONE (19:32)
[2021-07-09] MEDS ORDERED: SODIUM CHLORIDE 0.9% 500 ML INFUS.BAG IV ONE (19:33)
[2021-07-09 19:45] LABS: PH,URINE 5.5 (5.0-8.0); URINE APPEARANCE CLEAR; URINE BILIRUBIN NEGATIVE (NEGATIVE); URINE COLOR YELLOW; URINE GLUCOSE (UA) NEGATIVE (NEGATIVE); URINE KETONE NEGATIVE (NEGATIVE); URINE LEUK ESTERASE NEGATIVE (NEGATIVE); URINE NITRITE NEGATIVE (NEGATIVE); URINE PROTEIN NEGATIVE (NEGATIVE)
[2021-07-09 19:55] LABS: HCG,QUALITATIVE URINE NEGATIVE
[2021-07-09] MEDS ORDERED: ONDANSETRON 4 MG/2 ML VIAL ONE (19:56)
[2021-07-09] MEDS ORDERED: ACETAMINOPHEN 1000 MG/100 ML BAG IVPB ONE (20:54)
[2021-07-09 21:23] LABS: BASO % 0.5 % (0-2.0); EOS % 2.1 % (0-4.5); HEMATOCRIT 23.2 % (32.4-45.2); LYMPH % 27.7 % (8-40); MCHC 28.5 g/dl (32.0-36.0); MEAN CELL VOLUME 55.2 fl (80-96); MEAN PLT VOLUME 8.5 fl (7.5-11.1); MONO % 7.5 % (3.8-10.2); NEUT % 62.2 % (42.8-82.8); PLATELET COUNT 267 10^3/uL (134-434); RDW 19.5 % (11.6-15.6); WHITE BLOOD COUNT 10.4 K/mm3 (4.0-10.0)
[2021-07-09 21:25] LABS: MCH 15.8 pg (25.7-33.7)
[2021-07-09 21:29] LABS: HEMOGLOBIN 6.6 GM/dL (10.7-15.3)
[2021-07-09 21:45] LABS: CALCIUM 8.6 mg/dL (8.5-10.1)
[2021-07-09 21:46] LABS: ALBUMIN 3.2 g/dl (3.4-5.0); BLOOD UREA NITROGEN 9.8 mg/dL (7-18)
[2021-07-09] MEDS ORDERED: METOCLOPRAMIDE HCL INJECTION 10 MG/2 ML VIAL IVPB ONE (21:47)
[2021-07-09 21:49] LABS: CREATININE 0.6 mg/dL (0.55-1.3)
[2021-07-09 21:50] LABS: BILIRUBIN,TOTAL 0.4 mg/dL (0.2-1)
[2021-07-09 21:57] LABS: ANISOCYTOSIS 2+; MACROCYTOSIS 0; PLATELET ESTIMATE NORMAL
[2021-07-09] MEDS ORDERED: ACETAMINOPHEN INJECTION 100 ML IVPB ONE (22:09)
[2021-07-09 22:43] LABS: INR 1.06 (0.83-1.09); PROTHROMBIN TIME (PATIENT) 12.2 SEC (9.7-13.0)
[2021-07-10 00:36] VITALS: BMI 47.5
[2021-07-10] MEDS ORDERED: FERRIC CARBOXYMALTOSE 750 MG in SODIUM CHLORIDE 250 ML IVPB ONE (03:30)
[2021-07-10] MEDS ORDERED: IRON SUCROSE INJECTION 200 MG in SODIUM CHLORIDE 90 ML IVPB ONE (08:04)
[2021-07-10 08:59] LABS: CALCIUM 8.3 mg/dL (8.5-10.1)
[2021-07-10 09:01] LABS: BLOOD UREA NITROGEN 8.3 mg/dL (7-18)
[2021-07-10 09:03] LABS: CREATININE 0.6 mg/dL (0.55-1.3); PHOSPHOROUS 3.2 mg/dL (2.5-4.9)
[2021-07-10] MEDS: PANTOPRAZOLE SOD 40 MG SUSPENSION PACKET PO SCH (09:51)
[2021-07-10] MEDS: FAMOTIDINE 20 MG TABLET PO SCH (09:51)
[2021-07-10] MEDS ORDERED: PANTOPRAZOLE SODIUM 40 MG VIAL IVPUSH SCH ×2 (10:00)
[2021-07-10] MEDS ORDERED: PNEUMOC 13-VAL CONJ-DIP CRM/PF 0.5 ML DISP.SYRIN IM ONE (10:00)
[2021-07-10 11:07] LABS: BASO % 0.9 % (0-2.0); EOS % 2.4 % (0-4.5); LYMPH % 26.5 % (8-40); MONO % 6.7 % (3.8-10.2); NEUT % 63.5 % (42.8-82.8)
[2021-07-10 11:08] LABS: HEMATOCRIT 25.1 % (32.4-45.2); HEMOGLOBIN 7.3 GM/dL (10.7-15.3); MCH 16.8 pg (25.7-33.7); MCHC 29.2 g/dl (32.0-36.0); MEAN CELL VOLUME 57.7 fl (80-96); PLATELET COUNT 233 10^3/uL (134-434); RBC 4.35 M/mm3 (3.60-5.2); RDW 19.8 % (11.6-15.6); WHITE BLOOD COUNT 6.7 K/mm3 (4.0-10.0)
[2021-07-10 11:09] LABS: MEAN PLT VOLUME 8.4 fl (7.5-11.1)
[2021-07-10 11:32] LABS: EPI CELLS 22 /uL (0-25.1); HYALINE CASTS 0 /uL (0-3.1); PH,URINE 7.5 (5.0-8.0); URINE APPEARANCE CLEAR; URINE BACTERIA >9,000 /uL (0-1359); URINE BILIRUBIN NEGATIVE (NEGATIVE); URINE COLOR YELLOW; URINE GLUCOSE (UA) NEGATIVE (NEGATIVE); URINE KETONE NEGATIVE (NEGATIVE); URINE LEUK ESTERASE 2+ (NEGATIVE); URINE NITRITE NEGATIVE (NEGATIVE); URINE PROTEIN NEGATIVE (NEGATIVE); URINE RBC 13 /uL (0-23.9); URINE UROBILINOGEN 0.2 mg/dL (0.2-1.0); URINE WBC 45 /uL (0-25.8)
[2021-07-10] MEDS: ACETAMINOPHEN 325 MG TABLET (FP) PO PRN ×2 (13:14→19:06)
[2021-07-11 09:02] LABS: EPI CELLS 31 /uL (0-25.1); HYALINE CASTS 1 /uL (0-3.1); PH,URINE 8.5 (5.0-8.0); URINE APPEARANCE CLOUDY; URINE BACTERIA >9,000 /uL (0-1359); URINE BILIRUBIN NEGATIVE (NEGATIVE); URINE COLOR YELLOW; URINE GLUCOSE (UA) NEGATIVE (NEGATIVE); URINE KETONE NEGATIVE (NEGATIVE); URINE LEUK ESTERASE 1+ (NEGATIVE); URINE NITRITE NEGATIVE (NEGATIVE); URINE PROTEIN NEGATIVE (NEGATIVE); URINE RBC 38 /uL (0-23.9); URINE WBC 31 /uL (0-25.8)
[2021-07-11] MEDS ORDERED: CEFTRIAXONE 1 GM in DEXTROSE 5%-WATER - 50 ML IVPB SCH (10:00)
[2021-07-11] MEDS ORDERED: DEXTROSE 5%-WATER - 50 ML IVPB ONE (10:46)
[2021-07-11] MEDS ORDERED: cefTRIAXone SODIUM 1 GM VIAL ONE (10:46)
[2021-07-11] MEDS: FAMOTIDINE 20 MG TABLET PO SCH (11:28)
[2021-07-11] MEDS: PANTOPRAZOLE SOD 40 MG SUSPENSION PACKET PO SCH (11:28)
[2021-07-11 13:42] VITALS: BP 130/79; PULSE 75; TEMP 97.4
[2021-07-11 13:47] LABS: BASO % 0.6 % (0-2.0); EOS % 1.9 % (0-4.5); HEMATOCRIT 28.5 % (32.4-45.2); LYMPH % 22.8 % (8-40); MCHC 28.2 g/dl (32.0-36.0); MEAN CELL VOLUME 57.8 fl (80-96); MEAN PLT VOLUME 8.7 fl (7.5-11.1); MONO % 5.5 % (3.8-10.2); NEUT % 69.2 % (42.8-82.8); PLATELET COUNT 280 10^3/uL (134-434); RBC 4.93 M/mm3 (3.60-5.2); RDW 20.3 % (11.6-15.6); WHITE BLOOD COUNT 10.6 K/mm3 (4.0-10.0)
[2021-07-11 13:59] LABS: MCH 16.3 pg (25.7-33.7)
[2021-07-11 14:11] LABS: CALCIUM 9.3 mg/dL (8.5-10.1)
[2021-07-11 14:12] LABS: ALBUMIN 3.6 g/dl (3.4-5.0); BLOOD UREA NITROGEN 7.4 mg/dL (7-18); MAGNESIUM 2.1 mg/dL (1.8-2.4)
[2021-07-11 14:15] LABS: CREATININE 0.6 mg/dL (0.55-1.3)
[2021-07-11 14:16] LABS: BILIRUBIN,TOTAL 0.5 mg/dL (0.2-1); TOT PROT 7.6 g/dl (6.4-8.2)
== END 2021-07-11 15:40 | disposition home or self-care (01) ==
LOC: JER 18:26 → INTOOBSV 21:40 → JERBED 21:40 → UNDOADMOB 21:40 → JERBED 07-10 00:11 → J7W 07-10 00:11 → JERBED 07-10 07:35 → J7W 07-10 07:35
PROVIDERS: ADMIT Hospitalist; ATTEND Nurse Practitioner Acute Care
PROC: 3E033GC Introduction of Other Therapeutic Substance into Peripheral Vein, Percutaneous Approach (ICD-10-PCS; principal; 2021-07-10)
PROC: 3E033NZ Introduction of Analgesics, Hypnotics, Sedatives into Peripheral Vein, Percutaneous Approach (ICD-10-PCS; 2021-07-10)
PROC: 3E03329 Introduction of Other Anti-infective into Peripheral Vein, Percutaneous Approach (ICD-10-PCS; 2021-07-10)
DX: E66.01 Morbid (severe) obesity due to excess calories (principal); Z68.42 Body mass index [BMI] 45.0-49.9, adult; J45.909 Unspecified asthma, uncomplicated; Z29.9 Encounter for prophylactic measures, unspecified; K80.20 Calculus of gallbladder without cholecystitis without obstruction; N39.0 Urinary tract infection, site not specified; N92.0 Excessive and frequent menstruation with regular cycle; D64.9 Anemia, unspecified; T80.92XA Unspecified transfusion reaction, initial encounter; Y93.89 Activity, other specified
CPT/HCPCS: 36415; 36430; 71046-TC-FY; 76700-TC; 76830-TC; 78226-TC; 80048; 80053; 81003; 82272; 82728; 83540; 83550; 83690; 83735; 84100; 84703; 85025; 85027; 85610; 86078; 86850; 86880; 86900; 86901; 86922; 93005; 93010; 96365; 96375; 99285-25; A9537; C9803; G0378; J1439; P9058; U0003; U0005

== ENCOUNTER 2023-01-11 21:09 | Emergency (ER) | payer OTHER ==
[2023-01-11 21:11] VITALS: RESP 18; BMI 46.9
[2023-01-11] MEDS ORDERED: ONDANSETRON 4 MG/2 ML VIAL IVPUSH ONE (22:01)
[2023-01-11] MEDS ORDERED: ACETAMINOPHEN 500 MG TABLET (FP) PO ONE (22:01)
[2023-01-11] MEDS ORDERED: ONDANSETRON 4 MG/2 ML VIAL ONE (22:17)
[2023-01-11] MEDS ORDERED: FAMOTIDINE 20 MG/50 ML IVPB 20 MG in PREMIX 50 IVPB ONE (22:17)
[2023-01-11] MEDS ORDERED: ACETAMINOPHEN 500 MG TABLET (FP) ONE (22:20)
[2023-01-11] MEDS ORDERED: FAMOTIDINE 20 MG/50 ML IVPB 20 MG/50 ML MG IVPB ONE (22:27)
[2023-01-11 23:07] LABS: BASO % 0.4 % (0-2.0); EOS % 1.4 % (0-4.5); HEMATOCRIT 36.1 % (32.4-45.2); HEMOGLOBIN 11.3 GM/dL (10.7-15.3); LYMPH % 25.3 % (8-40); MCH 21.8 pg (25.7-33.7); MCHC 31.3 g/dl (32.0-36.0); MEAN CELL VOLUME 69.5 fl (80-96); MEAN PLT VOLUME 9.9 fl (7.5-11.1); MONO % 7.8 % (3.8-10.2); NEUT % 65.1 % (42.8-82.8); PLATELET COUNT 243 10^3/uL (134-434); RBC 5.19 M/mm3 (3.60-5.2); RDW 17.1 % (11.6-15.6); WHITE BLOOD COUNT 11.2 K/mm3 (4.0-10.0)
[2023-01-11 23:09] LABS: URINE APPEARANCE CLEAR; URINE BILIRUBIN NEGATIVE (NEGATIVE); URINE COLOR YELLOW; URINE GLUCOSE (UA) NEGATIVE (NEGATIVE); URINE KETONE NEGATIVE (NEGATIVE); URINE LEUK ESTERASE NEGATIVE (NEGATIVE); URINE NITRITE NEGATIVE (NEGATIVE); URINE PROTEIN NEGATIVE (NEGATIVE); URINE UROBILINOGEN 0.2 mg/dL (0.2-1.0)
[2023-01-11] MEDS ORDERED: DICYCLOMINE HCL 10 MG CAPSULE PO ONE (23:23)
[2023-01-11] MEDS ORDERED: DICYCLOMINE HCL 20 MG/2 ML AMPUL IM ONE (23:32)
[2023-01-11 23:33] LABS: POTASSIUM 4.1 mmol/L (3.5-5.1)
[2023-01-11 23:35] LABS: ALBUMIN 3.6 g/dl (3.4-5.0); CALCIUM 8.5 mg/dL (8.5-10.1)
[2023-01-11 23:38] LABS: CREATININE 0.7 mg/dL (0.55-1.3)
[2023-01-11 23:40] LABS: BILIRUBIN,TOTAL 0.3 mg/dL (0.2-1); TOT PROT 7.3 g/dl (6.4-8.2)
[2023-01-11] MEDS ORDERED: MAG HYDROX/AL HYDROX/SIMETH 30 ML UNIT-DOSE CUP PO ONE (23:48)
[2023-01-11 23:50] LABS: ANISOCYTOSIS 1+; MACROCYTOSIS 0
[2023-01-12] MEDS ORDERED: MAG HYDROX/AL HYDROX/SIMETH 30 ML UNIT-DOSE CUP ONE (00:05)
[2023-01-12] MEDS ORDERED: LACTATED RINGERS SOLUTION 1000 ML INFUS.BAG IV ONE (00:59)
[2023-01-12] MEDS ORDERED: METOCLOPRAMIDE HCL INJECTION 10 MG/2 ML VIAL IVPUSH ONE (01:00)
[2023-01-12 01:02] VITALS: BP 138/71; PULSE 67; TEMP 98.6
[2023-01-12] MEDS ORDERED: METOCLOPRAMIDE HCL INJECTION 10 MG/2 ML VIAL ONE (01:37)
== END 2023-01-12 03:57 | disposition home or self-care (01) ==
LOC: JER 21:09
PROC: 3E033GC Introduction of Other Therapeutic Substance into Peripheral Vein, Percutaneous Approach (ICD-10-PCS; principal; 2023-01-11)
PROC: 3E033GC Introduction of Other Therapeutic Substance into Peripheral Vein, Percutaneous Approach (ICD-10-PCS; 2023-01-11)
PROC: 3E033GC Introduction of Other Therapeutic Substance into Peripheral Vein, Percutaneous Approach (ICD-10-PCS; 2023-01-12)
PROC: 3E023GC Introduction of Other Therapeutic Substance into Muscle, Percutaneous Approach (ICD-10-PCS; 2023-01-12)
DX: R10.32 Left lower quadrant pain (principal); R11.0 Nausea; R68.83 Chills (without fever); R63.0 Anorexia
CPT/HCPCS: 36415; 76705-TC; 80053; 81003; 83690; 84484; 84703; 85025; 87086; 93005; 93010; 99285-25